=== PATIENT | male | born 1995 | race Caucasian/White ===

== ENCOUNTER → 2020-03-30 | Outpatient (CLI) | payer BC | END | disposition home or self-care (01) | LOC: LAB 14:00 | PROVIDERS: ATTEND Specialist | DX: Z01.812 Encounter for preprocedural laboratory examination (principal); Z20.822 Contact with and (suspected) exposure to COVID-19 | CPT/HCPCS: 87426; C9803 ×2; U0003 ==

== ENCOUNTER 2020-04-04 06:06 | Day surgery (SDC) | payer BC ==
[2020-04-04] MEDS ORDERED: BUPIVACAINE MPF W/EPI 0.25% 30 ML VIAL ONE (06:44)
[2020-04-04] MEDS ORDERED: FENTANYL PF 100MCG/2ML AMPUL ONE (06:44)
== END 2020-04-04 10:10 | disposition home or self-care (01) ==
LOC: DS 06:06
PROVIDERS: ATTEND Specialist
DX: S83.511A Sprain of anterior cruciate ligament of right knee, initial encounter (principal); X58.XXXA Exposure to other specified factors, initial encounter; Y93.89 Activity, other specified; Y92.89 Other specified places as the place of occurrence of the external cause; Y99.8 Other external cause status; S83.281A Other tear of lateral meniscus, current injury, right knee, initial encounter
CPT/HCPCS: 29881; 29888; A4217; C1713 ×2; J3490; L1830; J0690; J1100; J2405; J2704; J3010